=== PATIENT | female | born 1985 | race Caucasian/White ===

== ENCOUNTER 2021-02-01 17:58 | Emergency (ER) | payer OTHER ==
[~2021-02-01] VITALS: Ht 157.5 cm; Wt 61.0 kg
[2021-02-01] MEDS ORDERED: IBUPROFEN 600 MG TABLET. PO ONE (18:15)
--- NOTE | 2021-02-01 18:19 | PHYS DOC ---
Past History Past Surgical History: No Surgical History (RICHA GILL APRN) Alcohol Use: None (RICHA GILL APRN) General Adult EDM: Chief Complaint: BREAST PROBLEM HPI: HPI: Patient is a 36-year-old female who presents to the ER for right-sided mastitis with a fever. Patient reports that she had a appointment and was placed on Augmentin 2 days ago but she was told that if the fevers continued she needed to go to the ER. Patient states that she took Tylenol at 1700 today. Patient is currently breast-feeding. Patient states that she does not have an OB as she recently moved here. She denies any nausea or vomiting. (RICHA GILL APRN) Review of Systems: Review of Systems: 14 body systems of the review of systems have been reviewed. See HPI for pertinent positive and negative responses, otherwise all other systems are negative, nonpertinent or noncontributory (RICHA GILL APRN) Current Medications: Current Meds: Current Medications Medications (Trade) Dose Ordered Sig/Tavia Start Time Stop Time Status Last Admin Dose Admin Ibuprofen (Motrin) 600 mg 1X ONCE 02/01/21 18:15 02/01/21 18:16 UNV (RICHA GILL APRN) Allergies: Allergies: Allergies Coded Allergies Type Severity Reaction Last Updated Verified No Known Drug Allergies 02/01/21 No (RICHA GILL APRN) Physical Exam: PE: Constitutional: Well developed, well nourished, no acute distress, non-toxic appearance. [] HENT: Normocephalic, atraumatic Eyes: PERRLA, EOMI, conjunctiva normal, no discharge. [] Neck: Normal range of motion, no stridor Cardiovascular:Heart rate regular rhythm, no murmur [] Lungs & Thorax: Normal work of breathing, no tachypnea Abdomen: Soft, flat Skin: Warm, dry, no rash. [] Breast: redness, warmth, swelling, pain noted to r. lower outer quadrant of breast, no palpable mass concerning for abscess Back: Normal range of motion Extremities: No tenderness, no cyanosis, no clubbing, ROM intact, no edema. [] Neurologic: Alert and oriented X 3, normal motor function, normal sensory function, no focal deficits noted. [] Psychologic: Affect normal, judgement normal, mood normal. [] (RICHA GILL APRN) Current Patient Data: Labs: Laboratory Tests Test 02/01/21 18:19 White Blood Count 10.8 x10^3/uL Red Blood Count 4.10 x10^6/uL Hemoglobin 12.9 g/dL Hematocrit 37.9 % Mean Corpuscular Volume 93 fL Mean Corpuscular Hemoglobin 31 pg Mean Corpuscular Hemoglobin Concent 34 g/dL Red Cell Distribution Width 13.0 % Platelet Count 173 x10^3/uL Neutrophils (%) (Auto) 73 % Lymphocytes (%) (Auto) 21 % Monocytes (%) (Auto) 5 % Eosinophils (%) (Auto) 1 % Basophils (%) (Auto) 0 % Neutrophils # (Auto) 7.9 x10^3uL Lymphocytes # (Auto) 2.3 x10^3/uL Monocytes # (Auto) 0.6 x10^3/uL Eosinophils # (Auto) 0.1 x10^3/uL Basophils # (Auto) 0.0 x10^3/uL Sodium Level 140 mmol/L Potassium Level 3.5 mmol/L Chloride Level 104 mmol/L Carbon Dioxide Level 24 mmol/L Anion Gap 12 Blood Urea Nitrogen 6 mg/dL Creatinine 0.9 mg/dL Estimated GFR (Cockcroft-Gault) 70.1 BUN/Creatinine Ratio 7 Glucose Level 102 mg/dL Calcium Level 8.7 mg/dL Total Bilirubin 0.2 mg/dL Aspartate Amino Transf (AST/SGOT) 76 U/L Alanine Aminotransferase (ALT/SGPT) 132 U/L Alkaline Phosphatase 74 U/L Total Protein 7.4 g/dL Albumin 3.1 g/dL Albumin/Globulin Ratio 0.7 Current Medications Medications (Trade) Dose Ordered Sig/Tavia Route PRN Reason Start Time Stop Time Status Last Admin Dose Admin Ibuprofen (Motrin) 600 mg 1X ONCE PO 02/01/21 18:15 02/01/21 18:16 DC 02/01/21 18:27 Vital Signs: Vital Signs Date Time Temp Pulse Resp B/P (MAP) Pulse Ox O2 Delivery O2 Flow Rate FiO2 02/01/21 18:09 100.2 86 16 98/73 (81) 99 Room Air (RICHA GILL APRN) EKG: EKG: [] (RICHA GILL APRN) Radiology/Procedures: Radiology/Procedures: []PROCEDURE: US BREAST RIGHT LTD Exam performed: Right breast ultrasound. HISTORY: Pain and redness in the right lower outer breast. Patient is currently breast-feeding. DATE OF SERVICE: 02/01/2021. COMPARISON: None available TECHNIQUE: Real-time grayscale imaging of the right breast is performed and images are obtained. FINDINGS: There is diffuse soft tissue swelling in the right lower outer breast in the area of pain and redness. No abnormal fluid collection to suggest abscess is identified. An abnormal appearing enlarged right axillary lymph node measures 2.1 cm with cortical thickening measuring up to 5 mm. IMPRESSION: 1. Diffuse soft tissue swelling in the in the outer right breast without drainable fluid collection or abscess. Findings are perhaps related to mastitis. Reportedly patient is on antibiotics. Short-term interval follow-up right breast ultrasound and mammogram may be obtained for 6 weeks after completion of antibiotic course to ensure interval resolution. Bilateral mammogram performed at that time may serve as a baseline screening exam. 2. Abnormal appearing right axillary lymph node likely reactive. BI-RADS Category 3: Probably Benign. "Our facility is accredited by the [employer] Mammography Program." Electronically signed by: Kylie Frederick MD (02/01/2021 8:52 PM) [facility] DICTATED AND SIGNED BY: KYLIE FREDERICK MD DATE: 02/01/212048 CC: RICHA GILL APRN; PCP,UNKNOWN ~MTH0 0 (RICHA GILL APRN) Heart Score: C/O Chest Pain: N/A Risk Factors: Risk Factors: DM, Current or recent (<one month) smoker, HTN, HLP, family history of CAD, obesity. Risk Scores: Score 0 - 3: 2.5% MACE over next 6 weeks - Discharge Home Score 4 - 6: 20.3% MACE over next 6 weeks - Admit for Clinical Observation Score 7 - 10: 72.7% MACE over next 6 weeks - Early Invasive Strategies (RICHA GILL APRN) C/O Chest Pain: No (BIANCA LEIGH DO) Course & Med Decision Making: Course & Med Decision Making Pertinent Labs and Imaging studies reviewed. (See chart for details) [] Patient is a 36-year-old female who presents to the ER for mastitis to her right breast. Patient reports that she has been on antibiotics for 2 days and has not had any improvement in her symptoms and continues to run a fever. Patient given ibuprofen for her fever. Work-up in the ER consisted of blood work and an ultrasound to rule out an abscess. Blood work unremarkable. Ultrasound shows mastitis. Patient advised to continue taking the antibiotic as previously prescribed. Patient did have mild elevation in her liver enzymes, due to fever, patient will be tested for Covid will be notified of her results when they become available. Patient advised to self isolate until she receives these results. I discussed with patient all findings and diagnostic testing as well as the need to follow-up with PCP for further evaluation and treatment or return to the ER if any new or worsening symptoms. Strict return precautions were also discussed at length. Patient voiced understanding and agreement with the plan. Patient is hemodynamically stable at the time of disposition. (RICHA GILL APRN) Course & Med Decision Making I was the Attending physician on the above date of service of this patient. This patient was evaluated, examined, treated, and dispositioned from the emergency department by the mid-level practitioner. Although I was working at the time , no assistance was requested. Electronically signed, Bianca Leigh DO (BIANCA LEIGH DO) Prasanna Disclaimer: Prasanna Disclaimer: This electronic medical record was generated, in whole or in part, using a voice recognition dictation system. (RICHA GILL APRN) Departure Departure: Impression: Primary Impression: Mastitis Disposition: 01 HOME / SELF CARE / HOMELESS Condition: GOOD Referrals: PCP,UNKNOWN (PCP) Patient Instructions: Mastitis Additional Instructions: You were seen in the ER today for fever with mastitis. Continue taking the antibiotic as directed. Your blood work is unremarkable and your ultrasound of the breast does not show any abscess but does show a mastitis. You are tested in the ER today for COVID-19, you will receive notification via telephone with your results in approximately 2 days. Please self isolate until you receive these results. Please follow-up with your primary care provider tomorrow regarding your ER visit. Continue to take Tylenol and ibuprofen for your fevers at home. Continue to breast-feed if able to. Please return to the ER if you develop high fevers refractory to treatment, intractable nausea or vomiting, generalized weakness or any new or worsening concerns. EMERGENCY DEPARTMENT GENERAL DISCHARGE INSTRUCTIONS Thank you for coming to [facility] (ED) today and trusting us with you care. We trust that you had a positivie experience in our Emergency Department. If you wish to speak to the department management, you may call the director at [phone]. YOUR FOLLOW UP INSTRUCTIONS ARE FOLLOWS: 1. Do you have a private Doctor? If you do not have a private doctor, please ask for a resource list of physicians or clinics that may be able to assist you with follow up care. 2. The Emergency Physician has interpreted your x-rays. The X-Ray specialist will also review them. If there is a change in the findings, you will be notified in 48 hours when at all possible. 3. A lab test or culture has been done, your results will be reviewed and you will be notified if you need a change in treatment. ADDITIONAL INSTRUCTIONS AND INFORMATION: 1. Your care today has been supervised by a physician who is specially trained in emergency care. Many problems require more than one evaluation for a complete diagnosis and treatment. We recommend that you schedule your follow up appointment as recommended to ensure complete treatment of you illness or injury. If you are unable to obtain follow up care and continue to have a problem, or if your condition worsens, we recommend that you return to the ED. 2. We are not able to safely determine your condition over the phone nor are we able to give sound medical advice over the phone. For these safety reasons, if you call for medical advice we will ask you to come to the ED for further evaluation. 3. If you have any questions regarding these discharge instructions please call the ED at [phone]. SAFETY INFORMATION: In the interest of safety, wellness, and injury prevention; we encourage you to wear your sealbelt, if you smoke; quite smoking, and we encourage family to use a protective helmet for bicycling and other sporting events that present an increased risk for head injury. IF YOUR SYMPTOMS WORSEN OR NEW SYMPTOMS DEVELOP, OR YOU HAVE CONCERNS ABOUT YOUR CONDITION; OR IF YOUR CONDITION WORSENS WHILE YOU ARE WAITING FOR YOUR FOLLOW UP APPOINTMENT; EITHER CONTACT YOUR PRIMARY CARE DOCTOR, THE PHYSICIAN WHOSE NAME AND NUMBER YOU WERE GIVEN, OR RETURN TO THE ED IMMEDIATELY. RICHA GILL APRN Feb 01, 2021 18:19 BIANCA LEIGH DO Feb 02, 2021 02:36
[2021-02-01 18:47] LABS: BASO % 0 % (0-3); EOS # 0.1 x10^3/uL (0.0-0.7); EOS % 1 % (0-3); HEMATOCRIT 37.9 % (36.0-47.0); HEMOGLOBIN 12.9 g/dL (12.0-15.5); LYMPH # 2.3 x10^3/uL (1.0-4.8); LYMPH % 21 % (24-48); MEAN CORPUSCULAR HEMOGLOBIN 31 pg (25-35); MEAN CORPUSCULAR HGB CONC 34 g/dL (31-37); MEAN CORPUSCULAR VOLUME 93 fL (79-100); MONO # 0.6 x10^3/uL (0.0-1.1); MONO % 5 % (0-9); NEUT # 7.9 x10^3uL (1.8-7.7); NEUT % 73 % (31-73); PLATELET COUNT 173 x10^3/uL (140-400); WHITE BLOOD COUNT 10.8 x10^3/uL (4.0-11.0)
[2021-02-01 18:50] LABS: CALCIUM 8.7 mg/dL (8.5-10.1); CREATININE 0.9 mg/dL (0.6-1.0); GFR 70.1; POTASSIUM 3.5 mmol/L (3.5-5.1)
[2021-02-01 18:57] LABS: ALBUMIN 3.1 g/dL (3.4-5.0); ALBUMIN/GLOBULIN RATIO 0.7 (1.0-1.7); TOTAL BILIRUBIN 0.2 mg/dL (0.2-1.0); TOTAL PROTEIN 7.4 g/dL (6.4-8.2)
--- NOTE | 2021-02-01 20:55 | RAD ---
Exam performed: Right breast ultrasound. HISTORY: Pain and redness in the right lower outer breast. Patient is currently breast-feeding. DATE OF SERVICE: 02/01/2021. COMPARISON: None available TECHNIQUE: Real-time grayscale imaging of the right breast is performed and images are obtained. FINDINGS: There is diffuse soft tissue swelling in the right lower outer breast in the area of pain and redness . No abnormal fluid collection to suggest abscess is identified. An abnormal appearing enlarged right axillary lymph node measures 2.1 cm with cortical thickening karlee suring up to 5 mm. IMPRESSION: 1. Diffuse soft tissue swelling in the in the outer right breast without drainable fluid collection or abscess. Findings are perhaps related to mastitis. Reportedly patient is on antibiotics. Short-ter m interval follow-up right breast ultrasound and mammogram may be obtained for 6 weeks after completi on of antibiotic course to ensure interval resolution. Bilateral mammogram performed at that time may serve as a baseline screening exam. 2. Abnormal appearing right axillary lymph node likely reactive. BI-RADS Category 3: Probably Benign. "Our facility is accredited by the [employer] Mammography Program." Electronically signed by: Kylie Frederick MD (02/01/2021 8:52 PM) [facility]
[2021-02-01 21:15] VITALS: BP 104/72
== END 2021-02-01 21:23 | disposition home or self-care (01) ==
LOC: ER 17:58
DX: N61.0 Mastitis without abscess (principal); Z20.822 Contact with and (suspected) exposure to COVID-19
CPT/HCPCS: 36415; 76642; 80053; 85025; 99284; C9803; U0003

== ENCOUNTER → 2021-04-16 | Outpatient (CLI) | payer OTHER ==
--- NOTE | 2021-04-16 17:22 | RAD ---
US EXT NON VASC RIGHT History:Reason: ENLARGED RT AXILLARY LYMPH NODE F/U / Spl. Instructions: / History: Comparison: February 01, 2021 Technique: Sonographic examination of the right axilla Findings: Mildly prominent right axillary lymph node measures 2.2 x 0.8 x 1.5 cm. Slightly decreased cortical t hickening compared to prior. Normal fatty hilum. Impression: 1. Mildly prominent right axillary lymph node, slightly decreased cortical thickening compared to pr ior. Findings most likely relate to reactive lymph node. Recommend continued clinical follow-up and i maging follow-up if interval growth. 2. Recommend follow-up of previous right breast findings as previously stated. Electronically signed by: Saw Saucedo DO (04/16/2021 5:20 PM) [id number]
== END ==
LOC: US 10:42
PROVIDERS: ATTEND Family Medicine
DX: R59.0 Localized enlarged lymph nodes (principal)
CPT/HCPCS: 76881